=== PATIENT | female | born 1965 | race Caucasian/White ===

== ENCOUNTER → 2017-03-07 | Outpatient (CLI) | payer OTHER ==
--- NOTE | 2017-03-11 09:44 | MM ---
Reason for exam: screening (asymptomatic). Last mammogram was performed 1 year ago. History: Patient is postmenopausal and is nulliparous. Family history of breast cancer in maternal aunt. Taking estrogen for 8 years beginning at age 40. Physical Findings: A clinical breast exam by your physician is recommended on an annual basis and results should be correlated with mammographic findings. MG Screening Mammo w CAD Bilateral CC and MLO view(s) were taken. Prior study comparison: March 06, 2016, bilateral MG screening mammo w CAD. June 10, 2014, bilateral MG diagnostic mammo w CAD [place]. The breast tissue is heterogeneously dense. This may lower the sensitivity of mammography. There is no discrete abnormality. No significant changes when compared with prior studies. ASSESSMENT: Negative, BI-RAD 1 RECOMMENDATION: Routine screening mammogram of both breasts in 1 year.
== END | disposition home or self-care (01) ==
LOC: RADMAMWWP 10:11
PROVIDERS: ATTEND Internal Medicine
DX: Z12.31 Encounter for screening mammogram for malignant neoplasm of breast (principal)

== ENCOUNTER → 2017-07-22 | Outpatient (CLI) | payer OTHER ==
--- NOTE | 2017-07-22 09:34 | CT ---
EXAMINATION TYPE: CT sinus wo con DATE OF EXAM: 07/22/2017 COMPARISON: NONE HISTORY: 52-year-old female Chronic sinusitis, dizziness, fluid in ears and sinus congestion. CT DLP: 525 mGycm Automated exposure control for dose reduction was used. TECHNIQUE: Noncontrast axial views of the paranasal sinuses were obtained. Coronal reconstructions pe rformed. FINDINGS: The frontal, ethmoid, left maxillary, and bilateral sphenoid sinuses are well pneumatized. There is t race mucosal thickening along the floor the right maxillary sinus. There is no air-fluid level. Reactive loli- osteogenesis is not seen. There is no destruction of the osseous steve of the paranasal sinuses. The osteomeatal complexes are patent. There is slight rightward nasal septal deviation. The imaged brain and orbits are normal in appearance. Visualized mastoid air cells and middle ear cavities are well pneumatized. Reformatted images confirm above findings. IMPRESSION: Only trace mucosal thickening along the floor of the right maxillary sinus. Otherwise, no significant paranasal sinus disease seen. Slight rightward nasal septal deviation. Visualized mastoid air cells are clear. Middle ear cavities remain pneumatized.
== END | disposition home or self-care (01) ==
LOC: RADCTMAIN 08:49
PROVIDERS: ATTEND Otolaryngology
DX: J34.2 Deviated nasal septum (principal); J34.89 Other specified disorders of nose and nasal sinuses
CPT/HCPCS: 70486

== ENCOUNTER → 2018-04-03 | Outpatient (CLI) | payer OTHER ==
--- NOTE | 2018-04-06 07:36 | BD ---
EXAMINATION TYPE: Axial Bone Density DATE OF EXAM: 04/03/2018 COMPARISON: NONE CLINICAL HISTORY: 52 YR OLD FEMALE....ICD-10 CODE: N95.1 POST MENOPAUSAL SYMPTOMS Height: 63.4 Weight: 169 FRAX RISK QUESTIONS: Secondary Osteoporosis: YES 3. Menopause before 45: YES AT AGE 40 RISK FACTORS HISTORY OF: Active: YES Postmenopausal woman: YES AT AGE 40 Take estrogen and/or progesterone medications: YES FOR 9 YRS MEDICATIONS: Prednisone or other steroids: YES, ASTHMA, ALLERGIES, INHALER PRN How Lon YR Thyroid Medications: YES, SYNTHROID, 20+ YRS Additional Medications: BP MEDS, VIT D, REFLUX MEDS, Additional History: HYPERTENSION, REFLUX EXAM MEASUREMENTS: Bone mineral densitometry was performed using the [employer] System. Bone mineral density as measured about the Lumbar spine is: ----- L1-L4(G/cm2): 1.120 T Score Values are as follows: ----- L1: -0.1 ----- L2: -0.5 ----- L3: -0.3 ----- L4: -1.1 ----- L1-L4: -0.5 Bone mineral density FIRST DEXA SCAN.....BASELINE STUDY Bone mineral density about the R hip (g/cm2): 0.919 Bone mineral density about the L hip (g/cm2): 0.948 T Score values are as follows: -----R Neck: -1.1 -----L Neck: -0.6 -----R Total: -0.7 -----L Total: -0.5 Bone mineral density FIRST DEXA....BASELINE STUDY FRAX%s: THERE IS A 8.7% CHANCE FOR A MAJOR OSTEOPOROTIC FX AND A 0.5% FOR HIP ....PROBABILITY OF F X IN 10 YRS TIME IMPRESSION: No evidence for osteoporosis or osteopenia. NOTE: T-SCORE=SD OF THE YOUNG ADULT MEAN.
--- NOTE | 2018-04-07 07:55 | MM ---
Reason for exam: screening (asymptomatic). Last mammogram was performed 1 year and 1 month ago. History: Patient is postmenopausal and is nulliparous. Family history of breast cancer in maternal aunt. Taking estrogen for 8 years beginning at age 40. Physical Findings: A clinical breast exam by your physician is recommended on an annual basis and results should be correlated with mammographic findings. MG Screening Mammo w CAD Bilateral CC and MLO view(s) were taken. Prior study comparison: March 07, 2017, bilateral MG screening mammo w CAD. March 06, 2016, bilateral MG screening mammo w CAD. The breast tissue is heterogeneously dense. This may lower the sensitivity of mammography. No significant changes when compared with prior studies. ASSESSMENT: Negative, BI-RAD 1 RECOMMENDATION: Routine screening mammogram of both breasts in 1 year.
== END ==
LOC: RADMAMWWP 14:40
PROVIDERS: ATTEND Internal Medicine
DX: Z12.31 Encounter for screening mammogram for malignant neoplasm of breast (principal); N95.1 Menopausal and female climacteric states
CPT/HCPCS: 77067; 77080

== ENCOUNTER → 2018-12-15 | Outpatient (CLI) | payer OTHER ==
[2018-12-15 07:37] LABS: INR 0.9 (<1.2); Partial Thromboplastin Time 22.7 sec (22.0-30.0); Prothrombin Time 9.8 sec (9.0-12.0)
[2018-12-15 07:42] LABS: HCT 44.3 % (34.0-46.0); HGB 14.6 gm/dL (11.4-16.0); MCH 31.5 pg (25.0-35.0); MCV 95.3 fL (80.0-100.0); Mean Platelet Volume 8.5; Platelet Count 239 k/uL (150-450); RBC 4.65 m/uL (3.80-5.40); RDW 12.5 % (11.5-15.5); WBC 7.1 k/uL (3.8-10.6)
[2018-12-15 07:58] LABS: Albumin 4.1 g/dL (3.5-5.0); Appearance,Urine Clear (Clear); Bacteria,Urine Rare /hpf; Bilirubin,Urine Negative (Negative); Blood,Urine Negative (Negative); Calcium 9.2 mg/dL (8.4-10.2); Color,Urine Yellow; Glucose,Urine (UA) Negative (Negative); Hyaline Casts,Urine 1 /lpf (0-2); Ketones,Urine Negative (Negative); Leukocyte Esterase,Urine Trace (Negative); Mucus,Urine Moderate /hpf; Nitrite,Urine Negative (Negative); Potassium 4.7 mmol/L (3.5-5.1); Protein,Urine Trace (Negative); RBC,Urine <1 /hpf (0-5); Specific Gravity,Urine 1.033 (1.001-1.035); Squamous Epithelial Cell,Urine 5 /hpf (0-4); Total Bilirubin 0.4 mg/dL (0.2-1.3); Total Protein 7.1 g/dL (6.3-8.2); Urobilinogen,Urine <2.0 mg/dL (<2.0); WBC,Urine 2 /hpf (0-5)
== END | disposition home or self-care (01) ==
LOC: LABPAT 06:56
PROVIDERS: ATTEND Orthopaedic Surgery
DX: Z01.812 Encounter for preprocedural laboratory examination (principal); M16.12 Unilateral primary osteoarthritis, left hip
CPT/HCPCS: 36415; 80053; 81001; 85027; 85610; 85730; 87070

== ENCOUNTER 2018-12-22 07:50 | Inpatient (IN) | payer OTHER ==
[2018-12-15 16:22] VITALS: BMI 29.2
[~2018-12-22 07:50] MED LIST: ACETAMINOPHEN TAB 500 MG TAB PO ONE; DEXAMETHASONE SOD PHOSPHATE 10 MG/ML 1 ML VIAL IV ONE; GABAPENTIN 300 MG CAP PO ONE; LACTATED RINGERS 1,000 ML IV SCH; MELOXICAM 7.5 MG TAB PO ONE; MIDAZOLAM 2 MG/2 ML VIAL IV PRN; ROPIVACAINE 246.25 MG, EPINEPHrine 0.5 MG, KETOROLAC 30 MG, cloNIDine HCL/PF 80 MCG, WA... MISCELLANE ONE; SCOPOLAMINE 1.5MG/72HR PATCH TRANSDERM ONE; TRANEXAMIC ACID 1,000 MG in SODIUM CHLORIDE 0.9% 100 ML IVPB ONE
[2018-12-22] MEDS ORDERED: LIDOCAINE 1% 20 ML VIAL (10MG/ML) FOR IV START INTRADERMA ONE (08:47)
[2018-12-22] MEDS ORDERED: ceFAZolin 3,000 MG in SODIUM CHLORIDE 0.9% IRRIGATIO 3,000 ML IRRIGATION ONE (09:40)
--- NOTE | 2018-12-22 10:57 | P.OP ---
Date of Procedure: 12/22/18 Preoperative Diagnosis: Severe osteoarthritis left hip Postoperative Diagnosis: Severe osteoarthritis left hip Procedure(s) Performed: Left total hip arthroplasty with a direct anterior approach Implants: Collado and nephew Polarstem size 2 standard [employer]ado [employer] Nephew R3, 3 hole acetabular shell, 48 mm [employer]hew reflection 6.5 mm cancellus screw, 20 mm 2 [employer]hew R3, XLPE 20 acetabular liner [employer]ado [employer] Nephew Oxinium femoral head 32 m, +0 All components were press-fit. The articulation is Oxinium on polyethylene. Anesthesia: spinal Surgeon: Ag James [facility] Staff Pharmacist #1: Mandi Rizo Estimated Blood Loss (ml): 100 Pathology: other (Femoral head) Condition: stable Disposition: PACU Indications for Procedure: After failure of conservative treatment we discussed the surgical and nonsurgical treatment options at length. Patient wishes to proceed with a total hip arthroplasty with a direct anterior approach. Complications specific to this procedure were discussed at length, including but not limited to infection, leg length discrepancy, dislocation, and nerve injury. Patient is aware of all these complications and informed consent was obtained Operative Findings: The operative findings are consistent with severe osteoarthritis of the left hip Description of Procedure: Patient was seen and evaluated in the preoperative area, consent was reviewed, and the surgical site was marked with a skin marker. Patient was then brought to the operating room and given prophylactic antibiotics intravenously. 1 g of Tranexamic acid was also given. A spinal anesthetic was administered by the anesthesia department. The patient was then placed on the Flushing table with the bony prominences well-padded. The hip area was then prepped and draped in usual sterile fashion. A universal timeout was then performed, which confirmed the patient's name, surgical site, ALLERGIES, and procedure being performed. Next the incision site was located at 1 cm distal and 1 cm lateral to the anterior superior iliac spine. The skin and subcutaneous tissues were sharply incised. Incision was carefully dissected down to the fascia overlying the tensor fascia madison muscle. This fascia was then incised in line with the incision. Next, using blunt finger dissection, the tensor fascia madison muscle was dissected off its investing fascia. The muscle was then carefully retracted laterally with a cobra retractor over the lateral neck of the femur. Next, the circumflex vessels were identified and cauterized using the AquaMantis device. The anterior hip capsule was then exposed. The capsule was then opened and an inverted T fashion. Cobra retractors were then placed intracapsularly. The proximal femur was then visualized. The femoral neck was then osteotomized appropriate level above the lesser trochanter. Small amount of traction was placed with the Flushing table. A small wedge of bone was then removed from the remaining femoral head. Next, using a corkscrew femoral head was easily removed from the acetabulum. On gross visual inspection, the femoral head had complete loss of articular cartilage in multiple periarticular osteophytes. Attention was then turned to the acetabulum. the acetabulum was exposed and any remaining labrum was excised. Sequential reaming of the acetabulum was performed using fluoroscopic guidance. When the appropriate size was reached, a trial was then placed. The position and fit of the trial was checked with fluoroscopy. The trial was then removed. Then, using fluoroscopic guidance, the final implant was impacted at 20 of anteversion and 40 of abduction, and fully seated in the acetabulum. 2 screws were then placed in the acetabulum. Again fluoroscopy was used to check position of the screws. Next, the liner was then impacted, with a 20 elevated liner located in the anterior superior quadrant. Component locking was confirmed. Attention was then directed to the femur. With the aid of the Flushing table, the femur was externally rotated to approximately 130, extended, and abducted under the opposite leg. A side hook was then placed under the proximal femur, and the side hook elevator was used to elevate the proximal femur. Retractors were then placed. A capsular release was performed, as well as a release of the conjoined tendon, which afforded excellent visualization of the proximal femur. Next, a box osteotome was used to lateralize the proximal femur. A bench hand was then used to locate the femoral canal. Sequential broaching was then performed with appropriate size which afforded excellent fixation in the proximal femur. A trial was then placed with appropriate head and neck, and the hip was gently reduced with the aid of the Flushing table. Fluoroscopy was then used to check position of the components, as well as to ensure equal leg lengths. The hip was then gently dislocated and the trials were then removed. Final implants were then impacted and the hip was again reduced. Final fluoroscopic x-rays confirmed that the components were in anatomic position, as well as equal leg lengths. The hip was also taken through range of motion, and found to be s table. The hip was then copiously irrigated with antibiotic solution with pulsatile lavage. The hip was then irrigated with Irrisept solution. The soft tissues were then injected with a ropivacaine solution, which consisted of 246.25 mg of ropivacaine, 0.5 mg of epinephrine, 30 mg of Toradol, 80 g of clonidine, and 48.45 mL of sterile water, for a total of 100 mL of fluid injected. A second d ose of 1 g of Tranexamic acid was also given. the fascia was then closed with 2-0 strata fix suture. The subcutaneous tissue was closed with 3-0 Vicryl. The subcuticular tissue was closed with 3-0 strata fix suture. The skin was then closed with Dermabond glue and a sterile silver dressing. The patient was then transferred to the recovery room in stable condition. The assistant county attorney [place] was required due to the complexity of surgery, and the need for skilled surgical elastic knitter hand frame for positioning, draping, exposure, retraction, and closure of the wound.
--- NOTE | 2018-12-22 11:22 | XR ---
EXAMINATION TYPE: XR Hip Limited LT, FL guidance operating room DATE OF EXAM: 12/22/2018 CLINICAL HISTORY: Fluoroscopic documentation during a left hip arthroplasty. TECHNIQUE: Fluoroscopy. COMPARISON: None. FINDINGS: Fluoroscopic guidance was provided during procedure performed by Dr. James. A total of 32 seconds of fluoroscopic time was utilized during the procedure and 2 spot images was acquired dur ing a left hip arthroplasty. IMPRESSION: As Above.
[2018-12-22] MEDS ORDERED: HYDROcodone/APAP 5-325MG 1 EACH TAB PO PRN ×2 (11:29)
[2018-12-22] MEDS ORDERED: DIAZEPAM 5 MG TAB PO PRN (11:29)
[2018-12-22] MEDS ORDERED: ONDANSETRON 4 MG/2 ML VIAL IVP PRN (11:29)
[2018-12-22] MEDS ORDERED: hydrOXYzine PAMOATE 25 MG CAP PO PRN (11:29)
[2018-12-22] MEDS ORDERED: MAGNESIUM HYDROXIDE 2,400 MG/10 ML CUP PO PRN (11:29)
[2018-12-22] MEDS ORDERED: HYDROmorphone 0.5 MG/0.5 ML SYRINGE IVP PRN ×2 (11:29)
[2018-12-22] MEDS ORDERED: NALOXONE 0.4 MG/ML 1 ML VIAL IV PRN (11:29)
[2018-12-22] MEDS ORDERED: HYDROmorphone 1 MG/ML 1 ML SYRINGE IVP PRN (11:29)
[2018-12-22] MEDS ORDERED: diphenhydrAMINE 50 MG/ML 1 ML VIAL IVP ONE (11:33)
[2018-12-22] MEDS: ONDANSETRON 4 MG/2 ML VIAL IVP ONE ×2 (11:33→16:28)
[2018-12-22 11:35] VITALS: RESP 16
--- NOTE | 2018-12-22 11:55 | XR ---
EXAMINATION TYPE: XR Hip Limited LT DATE OF EXAM: 12/22/2018 CLINICAL HISTORY: Left hip pain and osteoarthritis. TECHNIQUE: Single AP portable view of left hip is obtained immediately postoperatively. COMPARISON: None. FINDINGS: Metallic hardware from left hip arthroplasty is seen and appears satisfactory in alignment and position. There is evidence of recent surgery with subcutaneous gas noted laterally. IMPRESSION: Metallic hardware from left hip arthroplasty is satisfactory in position.
[2018-12-22] MEDS: HYDROmorphone 0.5 MG/0.5 ML SYRINGE IVP PRN ×4 (12:06→15:04)
[2018-12-22] MEDS: SODIUM CHLORIDE 0.9% 1,000 ML IV SCH (20:53)
[2018-12-22] MEDS ORDERED: SENNOSIDES-DOCUSATE SODIUM 1 EACH TAB PO SCH (21:00)
[2018-12-22] MEDS: ASPIRIN 325 MG TAB PO SCH (21:33)
[2018-12-22] MEDS ORDERED: IPRATROPIUM-ALBUTEROL 3 ML NEB INHALATION PRN (21:43)
[2018-12-23] MEDS ORDERED: ONDANSETRON 4 MG/2 ML VIAL ONE (02:10)
[2018-12-23] MEDS ORDERED: HYDROmorphone 0.5 MG/0.5 ML SYRINGE ONE (02:10)
[2018-12-23] MEDS ORDERED: LEVOTHYROXINE 112 MCG TAB PO SCH (06:30)
[2018-12-23 08:15] LABS: African American GFR (CKD) >90 (>60 ml/min/1.73 sqM); Anion Gap 7 mmol/L; Blood Urea Nitrogen 12 mg/dL (7-17); Calcium 8.3 mg/dL (8.4-10.2); Carbon Dioxide 25 mmol/L (22-30); Chloride 104 mmol/L (98-107); Glucose 96 mg/dL (74-99); Potassium 4.3 mmol/L (3.5-5.1); Sodium 136 mmol/L (137-145)
[2018-12-23 08:36] LABS: Basophils # (A) 0.1 k/uL (0-0.2); Basophils % (A) 0 %; Eosinophils % (A) 0 %; HCT 32.3 % (34.0-46.0); Lymphocytes # (A) 2.4 k/uL (1.0-4.8); Lymphocytes % (A) 17 %; MCH 32.1 pg (25.0-35.0); MCHC 33.8 g/dL (31.0-37.0); MCV 95.2 fL (80.0-100.0); Mean Platelet Volume 9.1; Monocytes # (A) 1.3 k/uL (0-1.0); Monocytes % (A) 9 %; Neutrophils # (A) 10.1 k/uL (1.3-7.7); Neutrophils % (A) 72 %; Platelet Count 192 k/uL (150-450); RDW 12.7 % (11.5-15.5); WBC 14.1 k/uL (3.8-10.6)
[2018-12-23 08:43] LABS: HGB 10.9 gm/dL (11.4-16.0)
[2018-12-23 08:57] VITALS: BP 114/70; PULSE 66; TEMP 97.8
[2018-12-23] MEDS ORDERED: LORATADINE 10 MG TAB PO SCH (09:00)
[2018-12-23] MEDS ORDERED: METOPROLOL SUCCINATE (ER) 25 MG TAB.ER.24H PO SCH (09:00)
[2018-12-23] MEDS ORDERED: MELOXICAM 7.5 MG TAB PO SCH (09:00)
[2018-12-23] MEDS: PANTOPRAZOLE 40 MG TABLET PO SCH ×2 (09:01→09:02)
[2018-12-23] MEDS: ASPIRIN 325 MG TAB PO SCH (09:01)
[2018-12-23] MEDS ORDERED: traMADol 50 MG TAB PO PRN ×2 (09:14)
--- NOTE | 2018-12-23 09:19 | P.DS ---
Providers Date of admission: 12/22/18 07:50 Expected date of discharge: 12/23/18 Attending physician: Ag James Consults: 12/22/18 11:29 Consult Physician Routine Consulting Provider: Jigna Simental Consult Reason/Comments: medical management Do you want consulting provider notified?: Yes Primary care physician: Sajan Marcelino - Discharge Diagnosis(es) (1) S/P total hip arthroplasty Current Visit: Yes Status: Acute (2) Osteoarthritis of left hip Current Visit: Yes Status: Acute Hospital Course: This is a 53-year-old female with known history of degenerative arthritis of the left hip. The patient presents for evaluation. After discussion and consideration patient elects to proceed with total hip arthroplasty. The patient is seen preoperatively by Dr. James and medically cleared for surgery by their primary care physician. Patient is admitted to [facility] on 12/22/2018 for total hip arthroplasty. The procedures performed without complication or sequelae. The patient is doing well postoperatively. Labs and vital signs are stable on day of discharge. On day of discharge patient's hip incision is healing well. There is minimal erythema. There is no drainage noted at this time. There is minimal soft tissue swelling to the hip and thigh. Patient has full foot and ankle motion without difficulty or pain. Calf is soft and nontender to palpation. Neurovascular status to the left lower extremity is intact. Patient is discharged home in good condition. Opioid start talking form is reviewed and signed at patient bedside. Please see med rec for accurate list of home medications. Plan - Discharge Summary Discharge Rx Participant: No New Discharge Prescriptions: New Aspirin 325 mg PO BID #60 tab Sennosides [Senokot] 1 tab PO BID #60 tablet traMADol HCl [Ultram] 1 - 2 tab PO Q6H PRN #56 tab PRN Reason: Pain No Action Levothyroxine Sodium [Synthroid] 112 mcg PO DAILY Estrogen,Con/M-Progest Acet [Prempro 0.625-2.5 mg Tablet] 1 each PO DAILY Cholecalciferol (Vitamin D3) [Vitamin D3] 2,000 unit PO DAILY L.acidoph,Paracasei, B.lactis [Probiotic] 1 each PO DAILY Lansoprazole [Prevacid] 30 mg PO DAILY Levocetirizine Dihydrochloride [Xyzal] 5 mg PO DAILY Metoprolol Succinate (ER) [Toprol Xl] 25 mg PO DAILY Vit C/E/Zn/Coppr/Lutein/Zeaxan [Preservision Areds 2 Softgel] 2 each PO DAILY Ibuprofen [Motrin] 800 mg PO Q8H PRN PRN Reason: Pain Albuterol Sulfate [Proair Hfa] 1 - 2 puff INHALATION Q6HR PRN PRN Reason: Shortness Of Breath Discharge Medication List Estrogen,Con/M-Progest Acet [Prempro 0.625-2.5 mg Tablet] 1 each PO DAILY 10/21/13 [History] Levothyroxine Sodium [Synthroid] 112 mcg PO DAILY 10/21/13 [History] Albuterol Sulfate [Proair Hfa] 1 - 2 puff INHALATION Q6HR PRN 12/15/18 [History] Cholecalciferol (Vitamin D3) [Vitamin D3] 2,000 unit PO DAILY 12/15/18 [History] Ibuprofen [Motrin] 800 mg PO Q8H PRN 12/15/18 [History] L.acidoph,Paracasei, B.lactis [Probiotic] 1 each PO DAILY 12/15/18 [History] Lansoprazole [Prevacid] 30 mg PO DAILY 12/15/18 [History] Levocetirizine Dihydrochloride [Xyzal] 5 mg PO DAILY 12/15/18 [History] Metoprolol Succinate (ER) [Toprol Xl] 25 mg PO DAILY 12/15/18 [History] Vit C/E/Zn/Coppr/Lutein/Zeaxan [Preservision Areds 2 Softgel] 2 each PO DAILY 12/15/18 [History] Aspirin 325 mg PO BID #60 tab 12/23/18 [Rx] Sennosides [Senokot] 1 tab PO BID #60 tablet 12/23/18 [Rx] traMADol HCl [Ultram] 1 - 2 tab PO Q6H PRN #56 tab 12/23/18 [Rx] Follow up Appointment(s)/Referral(s): Ag James DO [Doctor of Osteopathic Medicine] - 2 Weeks Activity/Diet/Wound Care/Special Instructions: Weightbearing as tolerated with walker. Leave dressing intact. Dressing may be removed by home care nurse or by patient in 10 days. May shower with dressing on. Recommend use of compression stockings daily for at least 2 weeks during the day to help prevent swelling and blood clots. May remove at night before sleeping. Please follow-up with [facility] in 2 weeks and call with any questions or concerns, . Discharge Disposition: HOME WITH HOME HEALTH SERVICES
[2018-12-23] MEDS: SODIUM CHLORIDE 0.9% 1,000 ML IV SCH (09:48)
--- NOTE | 2018-12-23 14:50 | P.CONS ---
History of Present Illness - Reason for Consult Consult date: 12/23/18 Medical management of hypertension Requesting physician: Ag James - Chief Complaint Medical management of hypertension - History of Present Illness The patient is a 53-year-old female with a past medical history of essential hypertension, hypothyroidism and osteoarthritis who is admitted to orthopedic service for scheduled left hip arthroplasty secondary to severe left hip osteoarthritis and is postop day #1. She is doing well she reports her pain as mild, she reports that her nausea is improved now that [place] has been discontinued. She denies any chest pain or shortness of breath, she denies any abdominal pain. She reports that she's been up and ambulatory with a walker and plans to continue with physical therapy at home. The patient otherwise has no other complaints. Review of Systems Pertinent positive per HPI all other review of systems are negative Past Medical History Past Medical History: Asthma, Eye Disorder, GERD/Reflux, Hypertension, Musculoskeletal Disorder, Osteoarthritis (OA), Thyroid Disorder Additional Past Medical History / Comment(s): Seasonal allergies. Macular degeneration danny, gets monthly injections. Hx gastric ulcer. Problems w/ lower back. Lt hip pain. Varicose veins. History of Any Multi-Drug Resistant Organisms: None Reported Past Surgical History: No Surgical Hx Reported Additional Past Surgical History / Comment(s): Lt Cataract sx. RK danny eyes. Colonoscopy, EGD Past Anesthesia/Blood Transfusion Reactions: No Reported Reaction, Motion Sickness Past Psychological History: Anxiety, Depression Additional Psychological History / Comment(s): no Rx taken now Smoking Status: Never smoker Past Alcohol Use History: Occasional Past Drug Use History: None Reported - Past Family History Mother Family Medical History: No Reported History Medications and Allergies Home Medications Medication Instructions Recorded Confirmed Type Estrogen,Con/M-Progest Acet 1 each PO DAILY 10/21/13 12/22/18 History [Prempro 0.625-2.5 mg Tablet] Levothyroxine Sodium [Synthroid] 112 mcg PO DAILY 10/21/13 12/22/18 History Albuterol Sulfate [Proair Hfa] 1 - 2 puff INHALATION Q6HR PRN 12/15/18 12/22/18 History Cholecalciferol (Vitamin D3) 2,000 unit PO DAILY 12/15/18 12/22/18 History [Vitamin D3] Ibuprofen [Motrin] 800 mg PO Q8H PRN 12/15/18 12/22/18 History L.acidoph,Paracasei, B.lactis 1 each PO DAILY 12/15/18 12/22/18 History [Probiotic] Lansoprazole [Prevacid] 30 mg PO DAILY 12/15/18 12/22/18 History Levocetirizine Dihydrochloride 5 mg PO DAILY 12/15/18 12/22/18 History [Xyzal] Metoprolol Succinate (ER) [Toprol 25 mg PO DAILY 12/15/18 12/22/18 History Xl] Vit C/E/Zn/Coppr/Lutein/Zeaxan 2 each PO DAILY 12/15/18 12/22/18 History [Preservision Areds 2 Softgel] Aspirin 325 mg PO BID #60 tab 12/23/18 Rx Ondansetron Odt [Zofran Odt] 1 tab PO Q8HR PRN #12 tab 12/23/18 Rx Sennosides [Senokot] 1 tab PO BID #60 tablet 12/23/18 Rx traMADol HCl [Ultram] 1 - 2 tab PO Q6H PRN #56 tab 12/23/18 Rx Allergies Allergy/AdvReac Type Severity Reaction Status Date / Time No Known Allergies Allergy Verified 12/22/18 08:09 Physical Exam Vitals: Vital Signs Temp Pulse Pulse Resp BP Pulse Ox 12/23/18 07:35 97.8 F 66 16 114/70 99 12/23/18 02:00 98.4 F 56 L 115/68 97 12/22/18 19:01 98.8 F 56 L 16 113/69 100 12/22/18 16:50 97.9 F 59 L 16 112/72 94 L 12/22/18 15:15 49 L 16 106/55 92 L Intake and Output 12/22/18 12/23/18 12/23/18 22:59 06:59 14:59 Intake Total 320 Output Total 500 Balance -180 Intake: IV 200 Oral 120 Output: Urine 500 Other: Voiding Method Bedside Commode Bedside Commode # Voids 1 2 Constitutional: No acute distress, conversant, pleasant Eyes: Anicteric sclerae, moist conjunctiva, no lid-lag, PERRLA ENMT: NC/AT,Oropharynx clear, no erythema, exudates Neck:Supple, FROM, no masses, or JVD, No carotid bruits; No thyromegaly Lungs: Clear to auscultation, Clear to percussion, Normal respiratory effort, no accessory muscle use Cardiovascular: Heart regular in rate and rhythm, No murmurs, gallops, or rubs no peripheral edema Abdominal: Soft Nontender, nom distended, no guarding, no rebound or rigidity, Normoactive bowel sounds No hepatomegaly, No splenomegaly, No palpable mass No abdominal wall hernia noted Skin: Minimal surrounding erythema and soft tissue swelling, full R [place] of foot and ankle Extremities:No digital cyanosis No clubbing, Pedal pulses intact and symmet rical Radial pulses intact and symmetrical Normal gait and station, No calf tenderness Psychiatric: Alert and oriented to person, place and time, Appropriate affect Intact judgement Neuro: Muscles Strength 5/5 in all 4 extremities, Sensation to light touch grossly present throughout, Cranial nerves II-XII grossly intact. No focal sensory deficits Results CBC & Chem 7: 12/23/18 06:29 12/23/18 06:29 Labs: Abnormal Lab Results - Last 24 Hours (Table) 12/23/18 12/23/18 Range/Units 06:29 06:29 WBC 14.1 H (3.8-10.6) k/uL RBC 3.40 L (3.80-5.40) m/uL Hgb 10.9 L D (11.4-16.0) gm/dL Hct 32.3 L (34.0-46.0) % Neutrophils # 10.1 H (1.3-7.7) k/uL Monocytes # 1.3 H (0-1.0) k/uL Sodium 136 L (137-145) mmol/L Calcium 8.3 L (8.4-10.2) mg/dL Assessment and Plan Assessment: Essential hypertension Hypothyroidism Left hip osteoarthritis status post left hip arthroplasty Plan: The patient is admitted to primary orthopedic service and is doing well postop day #1 status post left hip arthroplasty secondary to severe left hip osteoarthritis. Patient is been up a temperature of the walker and is doing well vitals appear stable she is medically clear for discharge with appropriate postsurgical follow-up with orthopedics. Appreciate opportunity available this patient's care for any further questions please hesitate to contact the [facility] emergency department inpatient team
== END 2018-12-23 14:15 | disposition home health service (06) | DRG 470 ==
LOC: 2ORMAIN 07:50 → 4SSUR 16:05
PROVIDERS: ADMIT Orthopaedic Surgery; ATTEND Orthopaedic Surgery
PROC: 0SRB06A Replacement of Left Hip Joint with Oxidized Zirconium on Polyethylene Synthetic Substitute, Uncemented, Open Approach (ICD-10-PCS; principal; 2018-12-22 09:15)
DX: M16.12 Unilateral primary osteoarthritis, left hip (principal); E03.9 Hypothyroidism, unspecified; H35.30 Unspecified macular degeneration; I10 Essential (primary) hypertension; J45.909 Unspecified asthma, uncomplicated; K21.9 Gastro-esophageal reflux disease without esophagitis; Z79.82 Long term (current) use of aspirin; Z79.890 Hormone replacement therapy; Z87.11 Personal history of peptic ulcer disease; Z98.42 Cataract extraction status, left eye; Z79.1 Long term (current) use of non-steroidal anti-inflammatories (NSAID)
CPT/HCPCS: 73501; 80048; 85025; 86850; 86891; 86900; 86901; 88300

== ENCOUNTER → 2019-04-09 | Outpatient (CLI) | payer OTHER ==
--- NOTE | 2019-04-12 14:17 | MM ---
Reason for exam: screening (asymptomatic). Last mammogram was performed 1 year ago. History: Patient is postmenopausal and is nulliparous. Family history of breast cancer in maternal aunt. Taking estrogen for 10 years beginning at age 40. Physical Findings: A clinical breast exam by your physician is recommended on an annual basis and results should be correlated with mammographic findings. MG Screening Mammo w CAD Bilateral CC and MLO view(s) were taken. Prior study comparison: April 03, 2018, bilateral MG screening mammo w CAD. March 07, 2017, bilateral MG screening mammo w CAD. There are scattered fibroglandular densities. Stable benign calcifications. There is no discrete abnormality. No significant changes when compared with prior studies. ASSESSMENT: Benign, BI-RAD 2 RECOMMENDATION: Routine screening mammogram of both breasts in 1 year.
== END | disposition home or self-care (01) ==
LOC: RADBDWWP 12:33
PROVIDERS: ATTEND Internal Medicine
DX: Z12.31 Encounter for screening mammogram for malignant neoplasm of breast (principal)
CPT/HCPCS: 77067

== ENCOUNTER → 2020-01-19 | Outpatient (CLI) | payer OTHER | END | disposition home or self-care (01) | LOC: LABWHC1 10:23 | PROVIDERS: ATTEND Internal Medicine | DX: Z20.828 Contact with and (suspected) exposure to other viral communicable diseases (principal) | CPT/HCPCS: U0003; C9803 ==

== ENCOUNTER → 2020-01-31 | Outpatient (CLI) | payer OTHER | END | disposition home or self-care (01) | LOC: LABWHC1 11:07 | PROVIDERS: ATTEND Internal Medicine | DX: Z20.828 Contact with and (suspected) exposure to other viral communicable diseases (principal) | CPT/HCPCS: U0003; C9803 ==

== ENCOUNTER → 2020-05-19 | Outpatient (CLI) | payer OTHER ==
--- NOTE | 2020-05-19 11:41 | XR ---
EXAMINATION TYPE: XR lumbar spine 2 or 3V DATE OF EXAM: 05/19/2020 Comparison: 09/01/2013 Clinical History: 55-year-old female M54.5, M25.50 Findings: Gentle dextroconvex curvature along the upper lumbar spine. 5 lumbar type vertebral bodies. Facet art hropathy lower lumbar spine. Mild disc space narrowing L5-S1. Vertebral body heights are preserved an d alignment is maintained. Impression: Gentle dextroconvex scoliosis along the upper lumbar spine. Mild facet arthropathy lower lumbar spine and mild degenerative disc disease L5-S1. No vertebral compression collapse or malalignment.
--- NOTE | 2020-05-19 11:43 | XR ---
EXAMINATION TYPE: AP view pelvis and 2 views left hip DATE OF EXAM: 05/19/2020 COMPARISON: NONE HISTORY: 55-year-old female M54.5, M25.50 FINDINGS: Mild to moderate degenerative joint space narrowing of the right hip with marginal spurring. SI joint s appear symmetric and intact. Pubic symphysis is intact. Images show left hip total arthroplasty. Both acetabular cup and femoral stem components of the prost hesis are well seated without periprosthetic fracture. Alignment grossly anatomic. IMPRESSION: Mild to moderate right hip OA. Uncomplicated left hip total arthroplasty.
== END | disposition home or self-care (01) ==
LOC: RADXRMAIN 09:16
PROVIDERS: ATTEND Internal Medicine
DX: M51.37 Other intervertebral disc degeneration, lumbosacral region (principal); M47.816 Spondylosis without myelopathy or radiculopathy, lumbar region; M41.86 Other forms of scoliosis, lumbar region; M25.552 Pain in left hip; Z96.642 Presence of left artificial hip joint
CPT/HCPCS: 72100; 73502

== ENCOUNTER → 2020-05-30 | Outpatient (CLI) | payer OTHER ==
[2020-05-30 15:44] LABS: T4, Free (Free Thyroxine) 1.5 ng/dL (0.80-1.80)
== END | disposition home or self-care (01) ==
LOC: LABWHC1 09:33
PROVIDERS: ATTEND Internal Medicine
DX: E03.9 Hypothyroidism, unspecified (principal)
CPT/HCPCS: 36415; 84439; 84443

== ENCOUNTER → 2020-09-15 | Outpatient (CLI) | payer OTHER | END | disposition home or self-care (01) ==

== ENCOUNTER → 2021-01-15 | Outpatient (CLI) | payer OTHER ==
[2021-01-15 20:35] LABS: Basophils # (A) 0.05 X 10*3/uL (0.00-0.10); Basophils % (A) 0.9 %; Eosinophils # (A) 0.32 X 10*3/uL (0.04-0.35); Eosinophils % (A) 5.6 %; HCT 40.5 % (37.2-46.3); HGB 12.9 g/dL (12.0-15.0); Lymphocytes # (A) 2.54 X 10*3/uL (0.90-5.00); Lymphocytes % (A) 44.4 %; MCH 30.3 pg (27.0-32.0); MCHC 31.9 g/dL (32.0-37.0); MCV 95.1 fL (80.0-97.0); Mean Platelet Volume 12.4 fL (9.5-12.2); Monocytes # (A) 0.67 X 10*3/uL (0.20-1.00); Monocytes % (A) 11.7 %; Neutrophils # (A) 2.12 X 10*3/uL (1.80-7.70); Neutrophils % (A) 37.1 %; Platelet Count 218 X 10*3/uL (140-440); RBC 4.26 X 10*6/uL (4.10-5.20); RDW 13.2 % (11.5-14.5); WBC 5.72 X 10*3/uL (4.50-10.00)
[2021-01-15 22:37] LABS: ALT 23 U/L (8-44); AST 25 U/L (13-35); Albumin 4.1 g/dL (3.8-4.9); Albumin/Globulin Ratio 1.82 (1.60-3.17); Alkaline Phosphatase 62 U/L (41-126); BUN/Creat Ratio 15.49 Ratio (12.00-20.00); Blood Urea Nitrogen 15.3 mg/dL (9.0-27.0); Calcium 9.3 mg/dL (8.7-10.3); Carbon Dioxide 23.9 mmol/L (21.6-31.8); Chloride 106 mmol/L (96-109); Globulin 2.3 g/dL (1.6-3.3); Glucose 85 mg/dL (70-110); Non-African American GFR(CKD) 63.9 (60.0-200.0); Potassium 4.7 mmol/L (3.5-5.5); Sodium 141 mmol/L (135-145); Total Protein 6.4 g/dL (6.2-8.2)
[2021-01-15 22:43] LABS: C Reactive Protein <0.30 mg/dL (0.00-0.80)
[2021-01-15 22:55] LABS: Erythrocyte Sedimentation Rate 4 mm/Hr (0-30)
== END | disposition home or self-care (01) ==
LOC: LABWHC1 08:21
PROVIDERS: ATTEND Internal Medicine Gastroenterology
DX: M79.3 Panniculitis, unspecified (principal)
CPT/HCPCS: 36415; 80053; 85025; 85652; 86140

== ENCOUNTER → 2021-01-17 | Outpatient (CLI) | payer OTHER ==
--- NOTE | 2021-01-17 16:38 | XR ---
EXAMINATION TYPE: XR chest 2V DATE OF EXAM: 01/17/2021 COMPARISON: 04/12/2010 HISTORY: 55-year-old female R05.9, cough TECHNIQUE: Frontal and lateral views FINDINGS: There may be some left atrial enlargement on the lateral view. On the frontal view, heart appears nor mal size. Aorta and pulmonary vasculature within normal limits. Mild interstitial prominence has a ch ronic appearance. No consolidation or pleural effusion. IMPRESSION: There may be some degree of left atrial dilatation on the lateral view. Clinically correlate. Otherwi se, no acute process seen.
== END | disposition home or self-care (01) ==
LOC: RADXRMAIN 14:00
PROVIDERS: ATTEND Internal Medicine
DX: R05.9 Cough, unspecified (principal)
CPT/HCPCS: 71046

== ENCOUNTER → 2022-02-27 | Outpatient (CLI) | payer OTHER ==
--- NOTE | 2022-02-27 09:11 | USB ---
Reason for Exam: Additional evaluation requested from abnormal screening. Patient History: Menarche at age 12. Patient has no children. Postmenopausal. Currently using Estrogen, beginning at age 40 for 10 years. Maternal aunt had breast cancer. Risk Values: Mayra 5 year model risk: 1.4%. NCI Lifetime model risk: 8.7%. Technique: Method: Targeted. Prior Study Comparison: 03/07/2017 Bilateral Screening Mammogram, [facility]. 04/03/2018 Bilateral Screening Mammogram, [facility]. 04/09/2019 Bilateral Screening Mammogram, [facility]. Findings: The upper outer quadrant of the right breast, the axilla of the right breast and the retroareolar of the right breast were scanned. At the 8:00 position 7 cm from nipple there is a simple appearing cyst measuring 0.8 x 0.6 x 0.6 cm. This appears to correlate with the mammogram. At the 12:00 position 4 cm from the nipple is a bilobed cyst with good through transmission. This correlates with the mammographic findings. Clinical management of patient's reported breast pain is recommended. Overall Assessment: Benign, BI-RAD 2 Management: Screening Mammogram of both breasts in 1 year. A clinical breast exam by your physician is recommended on an annual basis and results should be correlated with mammographic findings. This exam should not preclude additional follow-up of suspicious palpable abnormalities. Results were given to the patient verbally at the time of exam. Electronically signed and approved by: Richy Ambrose D.O. Radiologis
--- NOTE | 2022-02-27 09:13 | MM ---
Reason for Exam: Clinical finding. Last mammogram was performed 2 year(s) and 11 month(s) ago. Indicated Problems: Pain of both sides (Global) for 1 Month(s) : ON AND OFF . Patient History: Menarche at age 12. Patient has no children. Postmenopausal. Currently using Estrogen, beginning at age 40 for 10 years. Maternal aunt had breast cancer. Risk Values: Amyra 5 year model risk: 1.4%. NCI Lifetime model risk: 8.7%. Prior Study Comparison: 06/10/2014 Bilateral Diagnostic Mammogram, [facility]. 03/06/2016 Bilateral Screening Mammogram, [facility]. 03/07/2017 Bilateral Screening Mammogram, [facility]. 04/03/2018 Bilateral Screening Mammogram, [facility]. 04/09/2019 Bilateral Screening Mammogram, [facility]. Tissue Density: The breast tissue is heterogeneously dense. This may lower the sensitivity of mammography. Findings: Analyzed By CAD. There is a 0.6 cm nodule at the 9:00 position 7 cm from the nipple. This is an interval change. There appear to be a pair of rounded densities measuring 1.2 x 1.6 cm located 4 cm from the nipple at the 12:00 position. This is a change from prior study. Left breast appears stable. No suspicious groups of microcalcifications, spiculated masses, architectural distortion or other secondary signs of malignancy are mammographically apparent. Overall Assessment: Incomplete: need additional imaging evaluation, BI-RAD 0 Management: Diagnostic Breast Ultrasound of the right breast. A negative mammogram report should not preclude additional follow up of suspicious palpable abnormalities. Patient should continue monthly self breast exam. A clinical breast exam by your physician is recommended on an annual basis and results should be correlated with mammographic findings. Electronically signed and approved by: Richy Ambrose D.O. Radiologis
--- NOTE | 2022-02-27 15:41 | BD ---
EXAMINATION TYPE: Axial Bone Density DATE OF EXAM: 02/27/2022 COMPARISON: NONE CLINICAL HISTORY: 56 years year old Female. ICD-10 CODE: Z13.820 OSTEOPOROSIS Height: 5 FT 4 1/2 IN Weight: 166 FRAX RISK QUESTIONS: Alcohol (3 or more units per day): NO Family History (Parent hip fracture): NO Glucocorticoids (More than 3mos): NO (Ex: prednisone, prednisolone, methylprednisolone, dexamethasone, and hydrocortisone). History of Fracture in Adulthood: NO Secondary Osteoporosis: 1. Type 1 Diabetes: NO 2. Hyperthyroidism: NO 3. Menopause before 45: YES 4. Malnutrition: NO 5. Chronic liver disease: NO Rheumatoid Arthritis: NO Current Tobacco Use: NO RISK FACTORS HISTORY OF: Surgery to Spine/Hip(right/left)/Wrist (right/left): LEFT HIP REPLACEMENT When: 2019 Family History of Osteoporosis: NO Active: YES Diet low in dairy products/other sources of calcium: NO Postmenopausal woman: YES Take estrogen and/or progesterone medications: CURRENTLY ON HRT APPROX 8 YEARS Lost more than 2 inches in height since high school: NO Frequent falls: NO Poor Health: GOOD Hyperparathyroidism: NO Adrenal Insufficiency: NO MEDICATIONS: Thyroid Medications: YES Which medication: UNITHROID How Lon MONTHS Additional Medications: UNITHROID, PREMPRO, GERD MEDS, METOPROLOL, Additional History: EXAM MEASUREMENTS: Bone mineral densitometry was performed using the [employer] System. Bone mineral density as measured about the Lumbar spine is: ----- L1-L4(G/cm2): 1.064 T Score Values are as follows: ----- L1: -0.6 ----- L2: -1.3 ----- L3: -0.4 ----- L4: -1.6 ----- L1-L4: -1.0 2018 UNAVAILABLE FOR COMPARISON Bone mineral density about the R hip (g/cm2): 0.789 T Score values are as follows: -----R Neck: -1.8 -----R Total: -1.0 2018 UNAVAILABLE FOR COMPARISON FRAX%s: The graph provided illustrates a 8.1 % chance for a major osteoporotic fx and a 0.8 % chance for the hips probability for fx in 10 years time. IMPRESSION: Osteopenia (T Score between -2.5 and -1). There is slightly increased risk of fracture and the patient may be considered for treatment. Re-Screen 2-5 years. NOTE: T-SCORE=SD OF THE YOUNG ADULT MEAN.
== END | disposition home or self-care (01) ==
LOC: RADBDWWP 06:54
PROVIDERS: ATTEND Obstetrics & Gynecology
DX: Z13.820 Encounter for screening for osteoporosis (principal); M85.89 Other specified disorders of bone density and structure, multiple sites; N64.4 Mastodynia; Z78.0 Asymptomatic menopausal state; Z80.3 Family history of malignant neoplasm of breast
CPT/HCPCS: 77066; 77080

== ENCOUNTER → 2023-01-13 | Outpatient (CLI) | payer OTHER ==
--- NOTE | 2023-01-13 13:48 | XR ---
EXAMINATION TYPE: XR chest 2V DATE OF EXAM: 01/13/2023 COMPARISON: 01/17/2021 INDICATION: Cough respiratory infection TECHNIQUE: Frontal and lateral views of the chest are obtained. FINDINGS: The heart size is normal. The pulmonary vasculature is normal. The lungs are clear. IMPRESSION: 1. No acute pulmonary process radiographically apparent.
== END | disposition home or self-care (01) ==
LOC: RADXRMAIN 12:44
PROVIDERS: ATTEND Internal Medicine
DX: J98.8 Other specified respiratory disorders (principal)
CPT/HCPCS: 71046

== ENCOUNTER → 2023-02-13 | Outpatient (CLI) | payer OTHER ==
--- NOTE | 2023-02-25 20:23 | MR ---
EXAMINATION TYPE: MR pituitary wo/w con DATE OF EXAM: 02/13/2023 1:09 PM CLINICAL INDICATION:Female, 57 years old with history of D35.2 BENIGN NEOPLASM OF PITUITARY GLAND; PH H, Benign neoplasm of pituitary gland. COMPARISON: MRI, 01/29/2021, 01/04/2020. TECHNIQUE: Multi planar, multi sequence imaging was performed through the brain. Specialized thin s equences were obtained through the pituitary gland/sella turcica. Pre-and post gadolinium sequences were obtained. IV Contrast: 7.5 cc Gadavist FINDINGS: Within the inferior left aspect of the pituitary gland there is mild interval increase in size of a p redominantly T2 hyperintense lesion which measures 4 mm in the coronal plane and demonstrates nonenha ncement on postcontrast sequences. The pituitary stalk is minimally deviated to the right. The abnorm ality does abut the left cavernous sinus without evidence of invasion. The suprasellar cistern is pre served. No significant mass effect upon the optic chiasm. The posterior pituitary bright spot is visu alized. The yeboah-white junctions, ventricular system, and basal cisterns appear unremarkable.The intracranial arterial flow voids are intact. 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 No significant mass effect is appreciated on surround ing structures. Correlate with laboratory analysis.
== END | disposition home or self-care (01) ==
LOC: RADMRIMAIN 11:29
PROVIDERS: ATTEND Internal Medicine
DX: D35.2 Benign neoplasm of pituitary gland (principal)
CPT/HCPCS: 70553; A9585

== ENCOUNTER → 2024-08-26 | Outpatient (CLI) | payer OTHER ==
[2024-08-26 15:13] LABS: Basophils # (A) 0.05 X 10*3/uL (0.00-0.10); Basophils % (A) 0.6 %; Eosinophils # (A) 0.25 X 10*3/uL (0.04-0.35); Eosinophils % (A) 3.2 %; HCT 47.4 % (37.2-46.3); Lymphocytes # (A) 3.34 X 10*3/uL (0.90-5.00); Lymphocytes % (A) 42.4 %; MCH 30.8 pg (27.0-32.0); MCHC 31.6 g/dL (32.0-37.0); MCV 97.3 FL (80.0-97.0); Mean Platelet Volume 11.8 FL (9.5-12.2); Monocytes % (A) 10.2 %; NRBC Per 100 WBC 0 X 10*3/uL (0.00-0.01); Neutrophils # (A) 3.42 X 10*3/uL (1.80-7.70); Neutrophils % (A) 43.3 %; Platelet Count 287 X 10*3/uL (140-440); RBC 4.87 X 10*6/uL (4.10-5.20); RDW 13.1 % (11.5-14.5); WBC 7.88 X 10*3/uL (4.50-10.00)
[2024-08-26 16:07] LABS: % Iron Saturation 28.05 (12.00-45.00); ALT 32 U/L (8-44); AST 33 U/L (13-35); Albumin 4.5 g/dL (3.8-4.9); Alkaline Phosphatase 81 U/L (41-126); BUN/Creat Ratio 15.09 Ratio (12.00-20.00); Blood Urea Nitrogen 16.6 mg/dL (9.0-27.0); Carbon Dioxide 27.1 mmol/L (21.6-31.8); Chloride 104 mmol/L (96-109); Chol/HDL Ratio 1.36 Ratio; Creatine Kinase 138 U/L (26-186); Globulin 2.5 g/dL (1.6-3.3); Glucose 90 mg/dL (70-110); Iron 108 UG/DL (50-170); LDL Cholesterol,Calculated 19.5 mg/dL (0.0-131.0); Magnesium 2.1 mg/dL (1.5-2.4); Phosphorus 4.1 mg/dL (2.4-5.1); Potassium 5.4 mmol/L (3.5-5.5); Sodium 140 mmol/L (135-145); Total Bilirubin 0.7 mg/dL (0.3-1.2); Total Iron Binding Capacity 385 UG/DL (228-460); VLDL Calculation 11.32 mg/dL (5.00-40.00)
[2024-08-26 21:01] LABS: Appearance,Urine Cloudy (Clear); Bilirubin,Urine Negative (Negative); Blood,Urine Negative (Negative); Color,Urine Yellow (Yellow); Ketones,Urine Negative (Negative); Nitrite,Urine Negative (Negative); PH, Urine 5.5; Specific Gravity,Urine 1.021 (1.001-1.030); Urobilinogen,Urine 0.2 E.U./DL
[2024-08-26 21:29] LABS: Bacteria,Urine 2+ (None Seen); Calcium Oxalate Crystals,Urine Present (None Seen)
[2024-08-27 10:26] LABS: Free Kappa Lt Chain Qnt, Serum 1.64 mg/dL (0.33-1.94); Free Lambda Lt Chain Qnt, Seru 1.08 mg/dL (0.57-2.63)
== END | disposition home or self-care (01) ==
LOC: LABWHC1 07:54
PROVIDERS: ATTEND Internal Medicine
DX: I12.9 Hypertensive chronic kidney disease with stage 1 through stage 4 chronic kidney disease, or unspecified chronic kidney disease (principal); E78.2 Mixed hyperlipidemia; N18.2 Chronic kidney disease, stage 2 (mild); E03.9 Hypothyroidism, unspecified
CPT/HCPCS: 36415; 80053; 80061; 81001; 82306; 82550; 82728; 83036; 83540; 83550; 83735; 83883; 83970; 84100; 84156; 84166; 84443; 85025